=== PATIENT | female | born 1955 | race Caucasian/White ===

== ENCOUNTER 2017-12-12 18:58 | Emergency (ER) | payer MEDICARE ==
[~2017-12-12 18:58] MED LIST: EPINEPHrine 1 MG/10 ML Abboject SYRINGE ONE; EPINEPHrine 1 MG/ML AMP ONE; Sodium Bicarb 50 MEQ/50 ML Abboject 8.4% SYRINGE ONE
[2017-12-12] MEDS ORDERED: EPINEPHrine 1 MG/ML AMP ONE (19:05)
[2017-12-12 19:13] LABS: Base Excess-Venous -28.7 mmol/L (0 (+/- 2.5)); Bicarbonate (HCO3v) 5.3 mmol/L (1.0-85.0); CO2 Tension (PvCO2) 47.5 mmHg (41.0-51.0); Calcium, Ionized 1.11 mmol/L (1.12-1.32); Hemoglobin - Calc 5.3 g/dL (12.0-18.0); O2 Tension (PvO2) 45.2 mmHg (35.0-45.0); Potassium 5.5 mmol/L (3.4-4.7); T. Carbon Dioxide 6.7 mmol/L (1.0-85.0); pH (Venous) 6.652 (7.35-7.45); vO2 Saturation-calc 34.6 % (94-98)
== END 2017-12-12 19:11 | disposition expired ==
LOC: ERS 18:58
DX: I46.9 Cardiac arrest, cause unspecified (principal); I10 Essential (primary) hypertension; F41.9 Anxiety disorder, unspecified
CPT/HCPCS: 36430; 82330; 82435; 82803; 84132; 84295; 85014; 86850; 86870; 86900; 86901; 86905; 86920; 86922; 92950; 96374; 96375; 96376; 99285; P9016; J0171